=== PATIENT | male | born 1975 | race Caucasian/White ===

== ENCOUNTER 2024-03-14 10:51 | Emergency (ER) | payer BC ==
[2024-03-14] MEDS: Sodium Chloride 0.9% 1,000 ML IV ONE (11:51)
[2024-03-14] MEDS: Metoclopramide 10 MG/2 ML SDV IVPUSH ONE (11:52)
[2024-03-14] MEDS: diphenhydrAMINE 50 MG/ML SDV IVPUSH ONE (11:52)
== END 2024-03-14 13:47 | disposition home or self-care (01) ==
LOC: MW.ED 10:51
DX: R51.9 Headache, unspecified (principal); Z79.899 Other long term (current) drug therapy
CPT/HCPCS: 70450; 96374; 96375; 99284; J1200; J2765; J7030

== ENCOUNTER 2024-09-14 17:51 | Emergency (ER) | payer BC | END 2024-09-14 19:35 | disposition left against medical advice (07) | LOC: MW.ED 17:51 | DX: Z53.21 Procedure and treatment not carried out due to patient leaving prior to being seen by health care provider (principal) ==